=== PATIENT | male | born 1965 | race Two or more races ===

== ENCOUNTER 2020-01-28 20:26 | Emergency (ER) | payer MEDICAID ==
[~2020-01-28] VITALS: Ht 185.4 cm; Wt 99.8 kg
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
--- NOTE | 2020-01-28 21:00 | NUR ---
RHODA SANTANA AT BED SIDE
[2020-01-28] MEDS ORDERED: ACETAMINOPHEN ES 500 MG TABLET ONE (21:08)
--- NOTE | 2020-01-28 21:13 | NUR ---
PT WAS TAKEN FOR CT
--- NOTE | 2020-01-28 21:26 | NUR ---
BACK FROM CT
[2020-01-28] MEDS ORDERED: ACETAMINOPHEN 325 MG TABLET PO ONE (21:30)
--- NOTE | 2020-01-28 22:27 | NUR ---
pt is medically stable for d/c. Patient discharged to home in stable condition. Rx and Written and verbal after care instructions given. Patient verbalizes understanding of instruction.
[2020-01-28 22:29] VITALS: BP 133/71
== END 2020-01-28 22:29 | disposition home or self-care (01) ==
LOC: ER 20:30
DX: M54.2 Cervicalgia (principal); I10 Essential (primary) hypertension; K21.9 Gastro-esophageal reflux disease without esophagitis; E11.9 Type 2 diabetes mellitus without complications
CPT/HCPCS: 72125-TC

== ENCOUNTER 2020-03-28 23:33 | Emergency (ER) | payer MEDICAID ==
[~2020-03-28] VITALS: Ht 185.4 cm; Wt 104.3 kg
--- NOTE | 2020-03-28 23:40 | NUR ---
PT AAOX4. BIBSELF C/O EPIGASTRIC PAIN X3-4 DAYS. PT STATING HE VOMITED AT HOME S/P EATING. PT STATED HE HAS HX OF CONTROLLED HTN AND GERD. PT WAS PLACED IN BED 3 ON MONITOR AND PULSE OX. LINE INITIATED LAC 20G, BLOOD DRAWN, AND SENT TO LAB. PT ALSO PROVIDED URINE SAMPLE. MD AT BEDSIDE FOR EVAL. AWAITING OTHER ORDERS.
[2020-03-29 00:30] LABS: BASOPHILS # (AUTO) 0.1 /CMM (0.0-0.2); BASOPHILS % (AUTO) 1.1 % (0.0-2.0); EOSINOPHILS % (AUTO) 3.2 % (0.0-6.0); HEMATOCRIT 41 % (39-51); HEMOGLOBIN 14.5 g/dL (13.5-17.5); LYMPHOCYTES % (AUTO) 32.5 % (20.0-44.0); MEAN CORPUSCULAR HGB CONC 36 g/dl (31.0-36.0); MEAN CORPUSCULAR VOLUME 90 fL (80-96); MONOCYTES # (AUTO) 0.7 /CMM (0.1-1.30); MONOCYTES % (AUTO) 10.7 % (2.0-12.0); NEUTROPHILS # (AUTO) 3.3 /CMM (1.8-8.9); NEUTROPHILS % (AUTO) 52.5 % (43.0-81.0); PLATELET COUNT (AUTO) 144 /CMM (150-450); RED BLOOD CELL COUNT(AUTO) 4.56 MIL/uL (4.5-6.0); WHITE BLOOD COUNT (AUTO) 6.3 K/uL (4.3-11.0)
[2020-03-29] MEDS ORDERED: ONDANSETRON HCL/PF 4 MG/2 ML VIAL IVP ONE (00:30)
[2020-03-29] MEDS ORDERED: MORPHINE SULFATE INJ 2 MG/ML DISP.SYRIN IV ONE (00:30)
[2020-03-29 00:32] LABS: APPEARANCE,URINE Clear (CLEAR); BILIRUBIN,URINE Negative (NEGATIVE); BLOOD, URINE Negative Ery/uL (NEGATIVE); COLOR,URINE Yellow (YELLOW); KETONES,URINE Negative (NEGATIVE); LEUKOCYTE ESTERASE ,URINE Negative (NEGATIVE); NITRITE, URINE Negative (NEGATIVE); PROTEIN,URINE 30 mg/dl (NEGATIVE); UGLUCOSE Negative (NEGATIVE); UROBILINOGEN,URINE 0.2 EU/dL (0.2)
--- NOTE | 2020-03-29 00:54 | NUR ---
PT RESTING IN BED, PROVIDED WITH MORE BLANKETS.
[2020-03-29 01:24] LABS: CALCIUM, SERUM 9.1 mg/dL (8.5-10.1); CARBON DIOXIDE 27 mmol/L (21-32); CHLORIDE 104 mmol/L (98-107); CREATININE 1.2 mg/dL (0.6-1.3); GLUCOSE 151 mg/dL (74-106); POTASSIUM 3.9 mmol/L (3.5-5.1); SODIUM SERUM 141 mmol/L (136-145); UREA NITROGEN, BLOOD 15 mg/dL (7-18)
[2020-03-29 01:31] LABS: ALANINE AMINOTRANSFERASE 30 U/L (12-78); ALBUMIN 3.8 g/dL (3.4-5.0); ALKALINE PHOSPHATASE 68 U/L (46-116); ASPARTATE AMINOTRANSFERASE 6 U/L (15-37); BILIRUBIN,DIRECT 0.1 mg/dL (0.0-0.2); BILIRUBIN,TOTAL 0.3 mg/dL (0.2-1.0); LIPASE 79 U/L (73-393); TOTAL PROTEIN, SERUM 7.5 g/dL (6.4-8.2)
--- NOTE | 2020-03-29 02:02 | NUR ---
PT ASLEEP IN BED, AWARE OF PLAN OF CARE.
--- NOTE | 2020-03-29 02:30 | NUR ---
Patient discharged to home in stable condition. Written and verbal after care instructions given. Patient verbalizes understanding of instruction. Pt told to follow up with PMD. Ambulated out of E.D. Denies pain.
--- NOTE | 2020-03-29 02:30 | NUR ---
IV removed. Catheter intact and site benign. Pressure and 4x4 applied to site. No bleeding noted.
[2020-03-29 02:31] VITALS: BP 127/79
== END 2020-03-29 02:32 | disposition home or self-care (01) ==
LOC: ER 23:33
DX: R10.13 Epigastric pain (principal); R11.0 Nausea; E11.9 Type 2 diabetes mellitus without complications; I10 Essential (primary) hypertension; K21.9 Gastro-esophageal reflux disease without esophagitis
CPT/HCPCS: 36415; 71045-TC; 80048-TC; 80076-TC; 81000-TC; 83690-TC; 84484-TC; 85025-TC; 85730-TC